=== PATIENT | male | born 1990 | race Caucasian/White ===

== ENCOUNTER 2024-03-20 01:10 | Emergency (ER) | payer OTHER, SELFPAY ==
[2024-03-20 01:12] VITALS: BP 174/87; PULSE 56; RESP 16; TEMP 36.2; O2SAT 97
[2024-03-20] MEDS: Lidocaine 1% (20 ml mdv) 20 ML Vial INFILT (01:27)
--- NOTE | 2024-03-20 01:40 | EX.ED.GENINJ ---
HPI History of Present Illness Chief Complaint: Laceration Informant: patient Narrative Narrative: 33-year-old male presenting to the emergency room with a RMF laceration. Patient was trying to open a can of tuna around 2130 hrs. when he sustained a laceration. He notes a superficial abrasion to the right index finger. He states he has been unable to get the bleeding to fully stop and the wound is gaping. States he does not need a tetanus shot. PFSH PFS Medical History Broken ankle Allergy/AdvReac Type Severity Reaction Status Date / Time morphine Allergy Mild Rash Verified 03/20/24 01:14 Surgical History History of appendectomy Social History Smoking Status: Never smoker ROS ROS ED Constitutional Constitutional ED: Denies chills, fever(s) or weight loss Eyes Eyes: Denies change in vision or diplopia ENT ENT ED: Denies ear pain, rhinorrhea or sore throat Cardiovascular Cardiovascular: Denies chest pain, orthopnea, palpitations or racing heartbeat Respiratory/Chest Respiratory/Chest: Denies cough, dyspnea or orthopnea Gastrointestinal Gastrointestinal: Denies abdominal pain, diarrhea, nausea or vomiting Genitourinary Genitourinary ED: Denies dysuria, hematuria or urinary frequency Musculoskeletal Musculoskeletal: Denies arthralgias or myalgias Integumentary Reports other Details: RMF laceration ; Denies abscess or rash Neurologic Neurologic: Denies headache(s) or weakness Psychiatric Psychiatric: Denies anxiety, depression, suicidal ideation or suicidal thoughts Endocrine Endocrinology: Denies polydipsia, polyphagia or polyuria Allergic/Immunologic Allergic/Immunologic ED: Denies mouth swelling, tongue swelling or urticaria EXAM Physical Exam Const Vital Signs: 03/20/24 01:12 Temperature 97.1 F L Temperature Source Temporal Pulse Rate 56 L Respiratory Rate 16 Blood Pressure 174/87 H Blood Pressure Mean 116 Pulse Ox 97 Oxygen Delivery Method Room Air Positive well nourished and well developed General Appearance ED: well developed HEENT Reports normocephalic, head/scalp atraumatic and moist mucous membranes Eyes PERRL and EOMs intact bilaterally Neck no lymphadenopathy, supple and no JVD Resp normal respiratory effort and clear to auscultation bilaterally Cardio regular rate, regular rhythm and no murmurs GI normal to inspection, nondistended, normoactive bowel sounds and non-tender Palpation: soft Back/Spine no CVA tenderness and normal ROM Extremity Extremity Narrative: RMF demonstrates about a 1.75 cm L-shaped laceration over the volar aspect of the distal RMF. Neurovascular intact. Mild venous bleeding. The wound is gaping. No nail injury. Tendon function is normal. General Extremety ED: Negative for edema General Extremity: Negative for edema Neuro oriented x3 and CN's II-XII intact bilaterally Sensorium / Orientation: alert Motor Exam: strength 5/5 throughout Psych mental status grossly normal Mood & Affect: Negative for depressed or tearful Skin no rashes or lesions noted and no wounds MDM MDM MDM Narrative Medical decision making narrative: Differential diagnosis includes but not limited to cutaneous laceration tendon laceration open fracture arterial or venous and nerve injury Patient is neurovascular intact. Tendon function is normal. Wound was locally anesthetized using 1% lidocaine. This provided adequate anesthesia. Wound was washed with Shur-Clens and explored. It was closed using a total of 5 simple interrupted 5-0 Ethilon sutures. Wound care discussed with patient. Stitches will need to be removed in 10 days. Return if worsening or concerns History & Record Review Discussion w/independent historian: Patient Discharge Plan Triage Chief Complaint: Laceration ED Provider: Joesph Burkett Dx/Rx/DC Orders Clinical Impression: Finger laceration Instructions: ED Laceration, Hand: All Closures Referrals: Clinic,NOW [Non-Staff] - 10 Day for suture removal Print Language: Tunisian Disposition Disposition: Home, Self Care
== END 2024-03-20 01:56 | disposition home or self-care (01) ==
LOC: ED 01:55
PROVIDERS: Emergency Provider Emergency Medicine; Visit Provider Emergency Medicine
DX: S61.212A Laceration without foreign body of right middle finger without damage to nail, initial encounter (principal); S60.410A Abrasion of right index finger, initial encounter; W26.8XXA Contact with other sharp object(s), not elsewhere classified, initial encounter; Z23 Encounter for immunization
CPT/HCPCS: 12001; 99285

== ENCOUNTER 2024-04-16 20:29 | Emergency (ER) | payer OTHER, SELFPAY ==
[2024-04-16 20:30] VITALS: BP 148/86; PULSE 97; RESP 16; TEMP 36.6; O2SAT 96
[2024-04-16 20:41] VITALS: BMI 40.6
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
[2024-04-16] MEDS: HYDROcodone Bitartrate/Apap 5/325 Tablet PO (21:06)
--- NOTE | 2024-04-16 21:15 | RAD_ITS ---
INDICATION: injury EXAMINATION/TECHNIQUE: X-RAY - RIGHT XR Forearm 2 Views COMPARISON: None. FINDINGS: Single lateral view of the right forearm. BONES: Normal anatomic alignment without evidence of fracture or subluxation. No concerning bony lesion or abnormal sclerosis to suggest lesion. JOINTS: No significant degenerative change. SOFT TISSUES: Small olecranon enthesophyte. RAD/Forearm 2 Views IMPRESSION: No acute osseous abnormality of the right forearm on this single image. Electronically Signed: Marlon Allen MD at 21:55 EDT ,
--- NOTE | 2024-04-16 21:15 | RAD_ITS ---
INDICATION: injury EXAMINATION/TECHNIQUE: X-RAY - RIGHT XR Ankle Min 3 Views COMPARISON: None. FINDINGS: 3 views of the right ankle. BONES: Normal anatomic alignment without evidence of fracture or subluxation. No concerning bony lesion or abnormal sclerosis to suggest lesion. JOINTS: No significant degenerative change. SOFT TISSUES: Inferior calcaneal and Achilles enthesophytes. Likely os peroneum. RAD/Ankle min 3 Views IMPRESSION: No acute osseous abnormality of the right ankle. Electronically Signed: Marlon Allen MD at 21:34 EDT ,
[2024-04-16 22:37] VITALS: BP 139/93; PULSE 88; RESP 18; TEMP 37.2; O2SAT 92
== END 2024-04-16 22:41 | disposition home or self-care (01) ==
PROVIDERS: Emergency Provider Emergency Medicine; Visit Provider Emergency Medicine
DX: S93.401A Sprain of unspecified ligament of right ankle, initial encounter (principal); S50.11XA Contusion of right forearm, initial encounter; F17.220 Nicotine dependence, chewing tobacco, uncomplicated; V86.06XA Driver of dirt bike or motor/cross bike injured in traffic accident, initial encounter
CPT/HCPCS: 73090; 73610; 99283

== ENCOUNTER 2024-09-11 14:53 | Emergency (ER) | payer SELFPAY ==
[2024-09-11 14:53] VITALS: BP 146/103; PULSE 90; RESP 18; TEMP 36.8; O2SAT 97; BMI 43.6
[2024-09-11 14:54] VITALS: BP 170/99; PULSE 87; RESP 15; TEMP 36.8; O2SAT 96
[2024-09-11 15:08] VITALS: O2SAT 95
--- NOTE | 2024-09-11 15:15 | ED.VIS.DYS ---
HPI History of Present Illness Chief Complaint: Cough Narrative Narrative: 33-year-old male who denies significant past medical history presents with 1 week of cough and chills. He states he coughed so hard that sometimes he has posttussive emesis. Otherwise he can bring up yellow-colored phlegm. He denies any overt fever. He feels short of breath sometimes at rest and other times with exertion. No leg swelling, no chest pain. He had mainly the cough and chills for about a week but over the last day he became more short of breath. Denies any DVT or PE risk factors. No leg swelling. [facility] Medical History Broken ankle Home Medications ?Medication ?Instructions ?Recorded ?Last Taken ?Type albuterol sulfate 90 mcg/actuation 1 - 2 puff inhalation Q4H PRN PRN 09/11/24 Unknown Rx aerosol inhaler (Ventolin HFA) Wheezing #1 ea prednisone 20 mg tablet 40 mg (2 x 20 mg) PO DAILY 7 days 09/11/24 Unknown Rx #14 tabs Allergy/AdvReac Type Severity Reaction Status Date / Time morphine Allergy Mild Rash Verified 09/11/24 14:55 Surgical History History of appendectomy Social History Smoking Status: Current some day smoker tobacco type: smokeless tobacco ROS ROS ED ROS Narrative Constitutional: No fever, positive chills. HEENT: No sore throat. No neck pain. No loss of vision. No rhinorrhea. Cardiovascular: No chest pain. No palpitations. No pedal edema. Respiratory: Positive cough, 1 to 2 days of shortness of breath. Abdominal: No abdominal pain. No nausea. No vomiting. Positive posttussive emesis. Musculoskeletal: No myalgias. No arthralgias. Skin: No rash. No change in color. EXAM Physical Exam Narrative Exam Narrative: Afebrile. Vital signs noted. HEENT: Normocephalic. Atraumatic. PERRL, EOMI. Neck soft and supple. No point tenderness or step off. Cardiovascular: Regular rate and rhythm. No murmurs, rubs, or gallops appreciated. Respiratory: No tachypnea. Lungs clear to auscultation bilaterally with occasional rhonchi. Positive prolonged expiratory phase. Gastrointestinal: Abdomen soft, nontender, with normoactive bowel sounds. No rebound or guarding. Neurological: Awake. Alert. Nonfocal, nonlateralizing. Skin: No rash. Normal color. No pallor. Musculoskeletal: No pedal edema. Full range of motion extremities. Const Vital Signs: 09/11/24 14:53 09/11/24 14:54 09/11/24 15:08 Temperature 98.2 F 98.2 F Temperature Source Oral Oral Pulse Rate 90 87 Respiratory Rate 18 15 Respiratory Effort Short of Breath Respiratory Depth Normal Respiratory Pattern Normal Blood Pressure 146/103 H 170/99 H Blood Pressure Mean 117 122 Pulse Ox 97 96 Oxygen Delivery Method Room Air Room Air Room Air 09/11/24 15:24 Temperature Temperature Source Pulse Rate 85 Respiratory Rate 16 Respiratory Effort Respiratory Depth Respiratory Pattern Blood Pressure Blood Pressure Mean Pulse Ox Oxygen Delivery Method MDM MDM MDM Narrative Medical decision making narrative: Differential diagnosis includes but not limited to bronchitis versus pneumonia versus pneumothorax. History and physical does not support pneumothorax. I have very low suspicion for ACS as he is not having any chest pain. No other associated symptoms. Given his prolonged expiratory phase, he was given albuterol aerosolized treatment. His pulse ox is 96 to 97% on room air. Chest x-ray and 2 views was obtained to rule out pneumonia. Chest x-ray 2 views interpreted by myself shows no evidence of a consolidation, no pneumonia or pneumothorax. I reviewed the radiology report which confirms my independent interpretation. On repeat examination, he states he feels no different, but on auscultation and reexamination he is moving better amount of air and his expiratory phase is not as prolonged. At this point in time, while I do not feel antibiotics are indicated, I feel he can be discharged safely home with follow-up to her primary care provider. He was written prescriptions for steroid burst of 40 mg for 7 days, and for an albuterol inhaler. I feel he can be discharged safely home with follow-up. Return instructions to the emergency department were reviewed. Disposition is discharged home in stable condition. Radiography Diagnostic Testing: Clinical Impression(s) from Imaging Studies Chest X-Ray 09/11/24 15:25 IMPRESSION: No radiographic evidence of acute cardiopulmonary disease. Electronically Signed: Isaiah Wright MD at 15:49 EST Reading Location ID and State: [facility] / [place] , Service support , Discharge Plan Triage Chief Complaint: Cough ED Provider: Savage Greene Dx/Rx/DC Orders Clinical Impression: Bronchitis, SOB (shortness of breath) Instructions: ED Bronchitis, No Antibiotic (Adult), ED Dyspnea Prescriptions: New albuterol sulfate [Ventolin HFA] 90 mcg/actuation HFA aerosol inhaler 1 - 2 puff inhalation Q4H PRN PRN (Reason: Wheezing) Qty: 1 0RF prednisone 20 mg tablet 40 mg PO DAILY 7 Days Qty: 14 0RF Primary Care Provider: Care Physician,No Primary Referrals: Care Physician,No Primary [Primary Care Provider] - Chris Bolivar, [employer] [[facility]] - 1 Week if not improving Activity Restrictions/Additional Instructions: Use your inhaler 1 to 2 puffs every 4-6 hours as needed for shortness of breath. Take the steroid burst as directed. Follow-up with a primary care provider. Return with increased difficulty breathing, new or worsening symptoms. Print Language: Dominican Disposition Disposition: Home, Self Care
[2024-09-11] MEDS: Albuterol 2.5 MG/3 ML VIAL.NEB. INHALATION (15:22)
[2024-09-11 15:24] VITALS: PULSE 85; RESP 16
--- NOTE | 2024-09-11 15:25 | RAD_ITS ---
EXAM: XR CHEST, 2 VIEWS CLINICAL INDICATION: Cough, shortness of breath TECHNIQUE: Frontal and lateral views of the chest. COMPARISON: No relevant prior studies available. FINDINGS: LUNGS AND PLEURAL SPACES: Unremarkable. No consolidation or edema. No pneumothorax. No effusion. HEART: Unremarkable. Cardiac silhouette not enlarged. MEDIASTINUM: Central airways and mediastinal contour are unremarkable. BONES/JOINTS: Unremarkable. No acute fracture. SOFT TISSUES: Unremarkable. RAD/Chest PA and Lateral IMPRESSION: No radiographic evidence of acute cardiopulmonary disease. Electronically Signed: Isaiah Wright MD at 15:49 EST ,
[2024-09-11 16:08] VITALS: BP 170/99; PULSE 85; RESP 20; TEMP 36.8; O2SAT 95
== END 2024-09-11 16:14 | disposition home or self-care (01) ==
PROVIDERS: Emergency Provider Emergency Medicine; Visit Provider Emergency Medicine
DX: J40 Bronchitis, not specified as acute or chronic (principal); F17.290 Nicotine dependence, other tobacco product, uncomplicated
CPT/HCPCS: 71046; 94640; 99284; A4216